=== PATIENT | female | born 1990 | race African-American/Black ===

== ENCOUNTER 2021-08-31 06:37 | Emergency (ER) | payer SELFPAY ==
[2021-08-31] MEDS ORDERED: Dexamethasone 10 MG/ML VIAL ONE (07:54)
== END 2021-08-31 07:57 | disposition home or self-care (01) ==
LOC: CSHERS 06:37
DX: J01.90 Acute sinusitis, unspecified (principal); J02.9 Acute pharyngitis, unspecified
CPT/HCPCS: 99282; J1100